=== PATIENT | female | born 1955 | race Caucasian/White ===

== ENCOUNTER → 2018-08-13 | Outpatient (CLI) | payer OTHER | END | disposition home or self-care (01) | LOC: RAH 06:53 | PROVIDERS: ATTEND Orthopaedic Surgery | DX: M19.071 Primary osteoarthritis, right ankle and foot (principal); R60.0 Localized edema; Z91.81 History of falling | CPT/HCPCS: 73718 ==

== ENCOUNTER → 2019-01-14 | Outpatient (CLI) | payer OTHER | END | disposition home or self-care (01) | LOC: OIH 13:36 | PROVIDERS: ATTEND Internal Medicine Cardiovascular Disease | DX: Z13.6 Encounter for screening for cardiovascular disorders (principal) | CPT/HCPCS: 75571 ==

== ENCOUNTER → 2019-01-14 | Outpatient (CLI) | payer OTHER | END | disposition home or self-care (01) | LOC: SHCH 13:37 | PROVIDERS: ATTEND Internal Medicine Cardiovascular Disease | DX: I35.0 Nonrheumatic aortic (valve) stenosis (principal) | CPT/HCPCS: 93306 ==

== ENCOUNTER → 2021-08-23 | Outpatient (CLI) | payer OTHER | END | disposition home or self-care (01) | LOC: RAH 08:42 | PROVIDERS: ATTEND Internal Medicine Cardiovascular Disease | DX: Z13.6 Encounter for screening for cardiovascular disorders (principal) | CPT/HCPCS: 75571 ==

== ENCOUNTER → 2022-07-09 | Outpatient (CLI) | payer MEDICARE ==
[~2022-07-09] MED LIST: IOHEXOL 350 MG/ML 100ML INFUS..BTL IV ONE
== END | disposition home or self-care (01) ==
LOC: RAH 10:53
PROVIDERS: ATTEND Internal Medicine
DX: R10.13 Epigastric pain (principal); M41.86 Other forms of scoliosis, lumbar region
CPT/HCPCS: 74178; Q9967

== ENCOUNTER → 2025-02-18 | Outpatient (CLI) | payer MEDICARE ==
[2025-02-18] MEDS: REGADENOSON 0.4 MG/5 ML PF SYG IVP ONE (11:32)
== END | disposition home or self-care (01) ==
LOC: RAH 09:17
PROVIDERS: ATTEND Internal Medicine Cardiovascular Disease
DX: R06.02 Shortness of breath (principal)
CPT/HCPCS: 78452; 93017; J2785; A9500 ×2